=== PATIENT | female | born 2000 | race American Indian/Alaskan Native ===

== ENCOUNTER 2022-06-17 14:28 | Emergency (ER) | payer OTHER ==
[~2022-06-17] VITALS: Ht 157.5 cm; Wt 45.4 kg
--- OUTSIDE RECORDS SUMMARY | 2022-06-17 15:32 | XMS ---
PreManage Notification: TAWNY QUINTANILLA Security Developer Advocate Events No recent Security Events currently on file CRITERIA MET - [facility] - 2 Visits in 30 Days CARE PROVIDERS There are no care providers on record at this time. Renae has no Care Guidelines for this patient. Elly VISIT COUNT (12 MO.) 1 [facility] NOTE: Visits indicate total known visits. ED/C VISIT TRACKING (12 MO.) [facility] 14[facility] COMPLAINT: - SUICIDAL IDEATION 06/06/2022 01:18 Joanna [facility] OR TYPE: Emergency INPATIENT VISIT TRACKING (12 MO.) No inpatient visits to display in this time frame [email or web address]
[2022-06-17] MEDS ORDERED: CEPHALEXIN500 M1 PO (19:21)
[2022-06-17] MEDS ORDERED: PYRIDIUM200 MG PO (19:21)
[2022-06-22] MEDS ORDERED: VIBRAMYCIN100 MG PO (12:34)
[2022-06-22] MEDS ORDERED: PYRIDIUM200 MG PO (12:46)
== END 2022-06-17 19:41 | disposition home or self-care (01) ==
LOC: ED 14:28
DX: R45.851 Suicidal ideations (principal)
CPT/HCPCS: 36415; 80053; 81001; 84443; 84703; 85025; 85060; 87088; 99285; A9270; G0480